=== PATIENT | male | born 1970 | race Caucasian/White ===

== ENCOUNTER 2016-12-01 06:05 | Day surgery (SDC) | payer OTHER ==
[2016-12-01] MEDS ORDERED: fentaNYL 100 MCG/2 ML SDV IV ONE ×3 (06:06→08:27)
[2016-12-01] MEDS ORDERED: Midazolam 1 MG/ML 2 ML SDV IV ONE ×7 (06:06→08:36)
[2016-12-01] MEDS ORDERED: Midazolam 1 MG/ML 2 ML SDV ONE (06:17)
[2016-12-01] MEDS ORDERED: fentaNYL 100 MCG/2 ML SDV ONE (06:17)
[2016-12-01] MEDS ORDERED: Dextrose 5%-0.45% NaCl 1,000 ML IV SCH (07:00)
--- NOTE | 2016-12-01 10:26 | OR ---
DATE: 12/01/2016 PROCEDURE: Total colonoscopy. INSTRUMENT USED: CF-H180AL Olympus video colonoscope. PREMEDICATIONS: Fentanyl 100 mcg intravenous, Versed 4 mg intravenous. The procedure was done under pulse oximetry, BP recording, and dog barber. INDICATION: The patient with increasing constipation and rectal bleeding, unexplained, and not responsive to medical measures. Colonoscopic examination is done for detection of any polypoid lesions and removal, endoscopic hemostasis therapy if needed. DESCRIPTION OF PROCEDURE: Initial rectal exam was unremarkable. Rigid anoscopy showed small internal hemorrhoids without bleeding from them. The colonoscope was passed with ease. Few scattered diverticula were noted in the distal left colon. The scope was passed with ease up to the ileocecal area, photographs were taken of the normal-appearing cecum, identified by landmarks of appendiceal orifice and double-bulged ileocecal folds. No bleeding was noted from any of the visualized areas at the commencement of the examination. No stricture. No vascular ectasia. No large isolated ulcerations seen. No evidence of diffuse inflammatory bowel disease in the form of friability, contact bleeding, or ulcerations. No polyp or tumor mass identified. Probing the proximal sides of folds and flexures, using adequate distention and clearing up the stool material, withdrawal of the scope was made, cecum to rectum time over 6 minutes. No bleeding was noted from any of the visualized areas at the completion of examination. IMPRESSION: Diverticulosis. The patient tolerated the procedure well. [facility] /[id number]
[2016-12-01 14:23] VITALS: BP 122/73
== END 2016-12-01 10:47 | disposition home or self-care (01) ==
LOC: DL.ENDO 06:05
PROVIDERS: ATTEND Internal Medicine Gastroenterology
DX: K57.30 Diverticulosis of large intestine without perforation or abscess without bleeding (principal); F32.9 Major depressive disorder, single episode, unspecified; Z88.1 Allergy status to other antibiotic agents; Z88.2 Allergy status to sulfonamides; Z98.890 Other specified postprocedural states; F17.210 Nicotine dependence, cigarettes, uncomplicated
CPT/HCPCS: 45378; J2250; J3010; J7042

== ENCOUNTER 2023-03-26 05:53 | Day surgery (SDC) | payer OTHER ==
[2023-03-26] MEDS ORDERED: Dextrose 5%-0.45% NaCl 1,000 ML IV SCH (06:00)
[2023-03-26] MEDS ORDERED: fentaNYL 100 MCG/2 ML SDV ONE (06:20)
[2023-03-26] MEDS ORDERED: fentaNYL 100 MCG/2 ML SDV IV ONE ×3 (06:21→06:59)
[2023-03-26] MEDS ORDERED: Midazolam 1 MG/ML 2 ML SDV IV ONE ×3 (06:21→07:00)
[2023-03-26] MEDS ORDERED: Midazolam 1 MG/ML 2 ML SDV ONE (06:21)
[2023-03-26 08:28] VITALS: BP 120/69; PULSE 63
== END 2023-03-26 08:30 | disposition home or self-care (01) ==
LOC: DL.ENDO 05:53
PROVIDERS: ATTEND Internal Medicine Gastroenterology
DX: K22.89 Other specified disease of esophagus (principal); K21.9 Gastro-esophageal reflux disease without esophagitis; I10 Essential (primary) hypertension; F32.A Depression, unspecified; E66.09 Other obesity due to excess calories; Z68.34 Body mass index [BMI] 34.0-34.9, adult; Z88.8 Allergy status to other drugs, medicaments and biological substances; Z88.2 Allergy status to sulfonamides
CPT/HCPCS: 87077; J2250; J3010; J7042

== ENCOUNTER 2024-12-19 05:19 | Day surgery (SDC) | payer OTHER ==
[2024-12-19] MEDS ORDERED: Lactated Ringers 1,000 ML IV ONE (05:20)
[2024-12-19] MEDS ORDERED: Propofol 200 MG/20 ML SDV IV ONE (05:20)
[2024-12-19] MEDS ORDERED: Propofol 200 MG/20 ML SDV ONE (05:48)
[2024-12-19] MEDS: Lactated Ringers 1,000 ML IV SCH (06:07)
[2024-12-19 07:45] VITALS: BP 132/88; PULSE 66
== END 2024-12-19 07:51 | disposition home or self-care (01) ==
LOC: DL.ENDO 05:19
PROVIDERS: ATTEND Internal Medicine Gastroenterology
DX: K20.0 Eosinophilic esophagitis (principal); I10 Essential (primary) hypertension; E11.9 Type 2 diabetes mellitus without complications; E66.09 Other obesity due to excess calories; F17.210 Nicotine dependence, cigarettes, uncomplicated; Z68.37 Body mass index [BMI] 37.0-37.9, adult; Z79.82 Long term (current) use of aspirin
CPT/HCPCS: 00731; 43239; 82947; J2003; J2704; J7120